=== PATIENT | male | born 1965 | race Two or more races ===

== ENCOUNTER 2025-08-19 14:19 | Emergency (ER) | payer OTHER, SELFPAY ==
[2025-08-19 14:19] VITALS: BP 135/86; PULSE 80; RESP 18; TEMP 37.1; O2SAT 95
--- NOTE | 2025-08-19 15:09 | XR_ITS ---
EXAMINATION: Ankle, right 3 views . Technique: Ankle AP, oblique, lateral 3 views Date and time of exam: August 19, 2025, 1551 hrs. Indications: Patient fell today with injury to the ankle, ankle pain. Findings: Fracture distal fibular shaft, which may represent an old ununited fracture, clinical correlation advised Deformities, old of the distal tibia No ankle dislocation Impression: Fracture distal fibular shaft, which may represent an old ununited fracture, the appearance should be clinically correlated, consider CT scan ankle without contrast follow-up
--- NOTE | 2025-08-19 15:09 | XR_ITS ---
Examination: Knee bilateral, 6 views Technique: Knee AP, lateral, oblique each knee total 6 views Date and time of exam: August 19, 2025 1545 hrs. Indications: Patient fell today with injury to both knees, bilateral knee pain. 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
--- NOTE | 2025-08-19 15:10 | PD.EDANKLE ---
Lower Extremity Injury RME/HPI General Chief Complaint: Ankle/Foot Injury Stated Complaint: RIGHT ANKLE INJURY S/P ETOH Time Seen by Provider: 08/19/25 14:52 Source: patient, EMS, RN notes reviewed and old records reviewed Arrival date/time: 08/19/25 14:19 Mode of arrival: wheelchair Limitations: no limitations RME / HPI RME / HPI Narrative: 60yom presents to ED for ankle pain s/p trip and fall at home today. Patient reports he tripped over the floor after drinking a few beers. Patient c/o right ankle pain and bilateral knee pain/abrasions. Denies head injury. No deformity reported. 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 Home Medications ?Medication ?Instructions ?Recorded ?Confirmed lisinopril 20 mg tablet 40 mg PO QDAY #0 tabs 05/22/17 07/30/23 metformin 1,000 mg tablet 1,000 mg PO BID #0 tabs 05/22/17 07/29/23 (Glucophage) montelukast 10 mg tablet 10 mg PO QDAY #0 tabs 05/22/17 07/29/23 (Singulair) nifedipine 90 mg tablet,extended 1 cap PO DAILY High Blood Pressure 05/22/17 07/30/23 release (Nifedipine ER) ##0 Aspirin Ec * (ECOTRIN *) 81 mg PO QDAY Blood Thinner ##0 11/05/17 07/30/23 ATORVASTATIN CALCIUM 20 mg PO HS High Cholesterol 06/29/18 07/29/23 albuterol sulfate 90 mcg/actuation 1 inh inhalation QID PRN Wheezing 07/29/23 07/30/23 aerosol inhaler empagliflozin 25 mg tablet 25 mg PO QDAY 07/29/23 07/29/23 (Jardiance) fluticasone furoate 50 1 mcg inhalation DAILY 07/29/23 07/29/23 mcg/actuation blister powder for inhalation gabapentin 800 mg tablet 800 mg PO QDAY 07/29/23 07/29/23 levothyroxine 25 mcg tablet 25 mcg PO QDAY 07/29/23 07/29/23 loratadine 10 mg tablet 10 mg PO QDAY 07/29/23 07/29/23 Allergies Allergy/AdvReac Type Severity Reaction Status Date / Time sulfamethoxazole Allergy Mild Rash Verified 07/30/23 07:05 trimethoprim Allergy Mild Rash Verified 07/30/23 07:05 Review of Systems Review of Systems Systems Reviewed: All systems reviewed, normal except as documented ENT Ears, Nose, Mouth, and Throat: Denies dizziness Cardiovascular Cardiovascular: Denies syncope Musculoskeletal Musculoskeletal: Reports arthralgias, Denies deformity, Reports joint swelling, Reports limited range of motion, Denies numbness and Denies tingling Integumentary/Breasts Comments: Reports abrasions Neurologic Neurologic: Denies dizziness, Denies numbness, Denies syncope and Denies tingling Past Medical History Past Medical History NEUROLOGIC: Positive Cerebrovascular Accident CARDIAC: Positive Hypercholesterolemia and Hypertension RESPIRATORY: Positive Asthma ENDOCRINE: Positive Diabetes Mellitus Type 2 Surgical History SURGICAL: Positive Knee Sx Social History SMOKING STATUS: Current some day smoker SUBSTANCE USE: does not use ALCOHOL: Current ED Exam General Limitations: Present no limitations General appearance: Present alert and in no apparent distress Head Head exam: Present atraumatic and normocephalic Eye Eye exam: Present normal appearance, PERRL and EOMI ENT ENT exam: Present normal exam and mucous membranes moist Neck Neck exam: Present normal inspection and full ROM Chest Chest inspection: Present normal inspection and symmetric chest wall rise Respiratory Respiratory exam: Present normal lung sounds bilaterally; Absent respiratory distress Cardiovascular Cardiovascular exam: Present regular rate and normal rhythm Extremities Exam Extremities exam: Present other (Tenderness/swelling to right ankle. Limited ROM 2/2 pain. Able to wiggle all toes. Good pedal pulse, sensation intact) Neurological Exam Neurological exam: Present alert and oriented X3 Psychiatric Psychiatric exam: Present normal affect and normal mood Skin Skin exam: Present other (Superficial abrasions to bilateral anterior knees) Course Course Course Narrative: 1700: visitor services specialistNataly dos santos, evaluated patient for discharge planning. Patient states he lives alone. Denies having wheelchair, walker or walking boot at home. Unable to use crutches s/p CVAx2. No transportation to see PCP. Nataly recommends PT evaluation tomorrow morning for possible SNF placement vs dc home with wheelchair. PT referral placed. visitor services specialist will follow. Patient will remain in ED until further eval. Quality Measures none Orders Category Date Time Status Consult Engine Pilot NOW Care 08/19/25 16:52 Completed Crutches .NOW Care 08/20/25 08:53 Completed Splint / Immobilizer STAT Care 08/19/25 16:25 Completed PT [Referral Physical Therapy] Stat Cons 08/19/25 16:54 Active XR ankle comp RT min 3V Stat Exams 08/19/25 15:09 Completed XR knee BI 3V Stat Exams 08/19/25 15:09 Completed Ibuprofen Tab [Motrin Tab] Med 08/19/25 15:09 Discontinued 800 mg PO X1 ONE Ketorolac Inj [Toradol Inj] Med 08/20/25 09:23 Discontinued 15 mg IM X1 ONE Late Tray Request Routine Oth 08/20/25 07:01 Active Vital Signs Vital signs: Vital Signs Temperature 98.8 F 08/19/25 14:19 Pulse Rate 80 08/19/25 14:19 Respiratory Rate 18 08/19/25 14:19 Blood Pressure 135/86 H 08/19/25 14:19 Pulse Oximetry (%) 95 08/19/25 14:19 Oxygen Delivery Method Room Air 08/19/25 14:19 PROCEDURES: Splint Fabrication: Clinician Made Type: Posterior Leg Reason for Splint: Improve Function, Optimal Positioning, Pain Management, Prevent Deformities and Support Joint/Muscle Circulation Distal to Splint: Yes Movement Distal to Splint: Yes Senation Distal to Splint: Yes Tolerance: Tolerates Well Extremity Injury, Lower MDM Narrative MDM Narrative:: 60yom presents to ED for ankle pain s/p trip and fall at home today. Patient reports he tripped over the floor after drinking a few beers. Patient c/o right ankle pain and bilateral knee pain/abrasions. Denies head injury. No deformity reported. 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 External records reviewed:: [facility] previous records (Admit 07/29/2023 for left knee surgery) Clinical information provided by:: patient and EMS Social determinants that could affect healthcare access:: none Patient has the following chronic illnesses:: Hypertension, diabetes, asthma, CVA How is presenting disease/condition affected by chronic disease/condition?: uneffected by Evaluation data The following diagnostics were reviewed and interpreted by me:: radiology exam(s) Lab and/or radiology exams considered but not ordered:: Blood alcohol level: Result not affect treatment plan Interpretation Summary: Knee x-rays: distal fibula fracture per my read Medications / Prescriptions Medications or Prescriptions considered but not ordered:: None Medication administrations:: Medication Administration History Discontinued Medications Ibuprofen (Ibuprofen Tab 400 Mg Tablet) 800 mg PO X1 ONE Stop: 08/19/25 15:10 Last Admin: 08/19/25 15:31 Dose: 800 mg Documented By: FLOWER Ketorolac Tromethamine (Ketorolac Inj 30 Mg/Ml Vial) 15 mg IM X1 ONE Stop: 08/20/25 09:24 Last Admin: 08/20/25 09:33 Dose: 15 mg Documented By: EF above medication adminstered in ED Consultations Consultation(s) initiated? (list below): No Diagnosis Extremity Injury, Lower Differential Diagnosis: other (Fracture, dislocation, sprain, strain, contusion, MSK pain) Most likely diagnosis given after review of the tests above:: ankle fracture Admission Indicated Admission indicated?: not indicated Admission Request Was there a request for admission?: No Disposition Plan Disposition Plan: Discharge Discharge Attestation Discharge Attestation: The patient and all family members were given an opportunity to ask questions and understood the discharge instructions. Discharge instructions specifically effects, indications for sooner follow up or return to the emergency department, and the expected course of current diagnosis. Patient condition: Stable Discharge Plan Plan Patient Disposition: Home w/HOME HEALTH Patient condition on transfer: Stable Prescriptions/Referrals Prescriptions/Med Rec: No Action nifedipine [Nifedipine ER] 90 MG tablet extended release 1 cap PO DAILY Qty: 0 lisinopril 20 MG tablet 40 mg PO QDAY Qty: 0 metformin [Glucophage] 1,000 MG tablet 1,000 mg PO BID Qty: 0 montelukast [Singulair] 10 MG tablet 10 mg PO QDAY Qty: 0 Aspirin Ec * (ECOTRIN *) 81 MG TABLET.DR 81 mg PO QDAY Qty: 0 ATORVASTATIN CALCIUM 20 MG tablet 20 mg PO HS levothyroxine 25 mcg Tablet 25 mcg PO QDAY gabapentin 800 mg Tablet 800 mg PO QDAY albuterol sulfate 90 mcg/actuation Hfa Aerosol Inhaler 1 inh INHALATION QID PRN (Reason: Wheezing) loratadine 10 mg Tablet 10 mg PO QDAY Jardiance 25 mg Tablet 25 mg PO QDAY fluticasone furoate 50 mcg/actuation Blister With Device 1 mcg INHALATION DAILY Referrals: Ely Smiley MD [Primary Care Provider] - In 1 week Problem List Clinical Impression: Ankle fracture, right Patient/Caregiver Discharge Instructions Additional Instructions: I recommend that you obtain a walker to help with mobility at home. If you have any difficulties with mobility or you change your mind about placement into a fpc facility please return to the emergency department immediately. The x-ray of your right lower extremity showed a distal fibular shaft fracture. Your left leg showed as well as a osteolytic lesion in the left tibia that appears unchanged from 2023. It is important that you have this evaluated further with advanced imaging with your primary care doctor. I recommend that you see a condenser tester for management of your ankle fracture within the next week and follow-up with your primary care doctor within the next 1 to 2 days. Print Language: Belarusian Stand Alone Forms: Shaye Award Info., Patient Portal Info Letter PA/TEXTILE COLORIST DYER Supervising Physician PA/TEXTILE COLORIST DYER Supervising Physician: Cristina
[2025-08-19] MEDS: IBUPROFEN TAB 400 MG TABLET 800 MG PO (15:31)
--- NOTE | 2025-08-19 16:45 | PC.NURSE ---
Splint applied to patient. Patient unable to use crutches safely,, patient noted to have slight right sided weakness, patient states It's from my stroke a long time ago . Patient denies having any DME at home or help from family or friend. Provider and Extractor Tender Raw Stock made aware.
--- NOTE | 2025-08-19 17:07 | PC.CC ---
Product Specialist, Ariela made aware by Damaris ZEPEDA that patient was going to discharge home and needed transportation. CC met with patient [id number] to discuss transportation services. Patient was pleasant. Patient reported that he suffered a stroke and is weak from the right side of his body. Patient reported that he has no DME or assistance at his friend's house ([address] [place] [address]). SW recommended a PT evaluation for short-term rehabilitation, if it denied by insurance, then Care Coordinators can obtain a wheelchair with a leg extension from [facility].
[2025-08-19 17:47] VITALS: BMI 34.8
--- NOTE | 2025-08-19 18:23 | EDNOTE_ITS ---
Emergency Room Addendum <Leda Lozano - Last Filed: 08/19/25 18:25> Addendum Narrative: I took over the care from Kvng Benavides and Dr. Evans at 6 PM on 08/19/2025, see his notes for complete H&P and ED course. Patient needs evaluation by our PT/OT and social media content specialist for possible snf placement. At 6 AM on 08/19/2025, the care of the patient was transferred to Dr. Evans. During my watch, the patient remained stable. Padilla Meyer MD <Padilla Meyer MD - Last Filed: 08/20/25 02:40> Addendum Narrative: I took over the care from YAMEL Arambula (attending Dr. Evans) at 6 PM on 08/19/2025, see her notes for complete H&P and ED course. Patient sustained right ankle fracture. fitness services managerNataly, evaluated patient for discharge planning yesterday. Patient lives alone. With no wheelchair. Unable to use crutches due to past CVAx2. No transportation to see PCP. Nataly recommended PT evaluation for possible SNF placement or possibly wheelchair for home. At 6 AM on 08/20/2025, the care of the patient was transferred to Dr. Evans. During my watch, the patient remained stable. Padilla Meyer MD
[2025-08-19 18:42] VITALS: BP 141/83; PULSE 81; RESP 18; TEMP 37.2; O2SAT 96
[2025-08-19 19:21] VITALS: BP 131/86; PULSE 85; RESP 18; TEMP 36.8; O2SAT 95
--- NOTE | 2025-08-19 20:51 | PC.NURSE ---
pt eval in the am
--- NOTE | 2025-08-19 20:52 | PC.NURSE ---
this rn gave pt dinner
[2025-08-20 05:42] VITALS: BP 158/102; PULSE 97; RESP 18; TEMP 36.9; O2SAT 94
--- NOTE | 2025-08-20 08:53 | PD.EDADDENDU ---
Emergency Room Addendum Addendum Narrative: Patient is a 60-year-old male that seen emergency department with concerns for right ankle pain and difficulties with mobility after sustaining a distal fibular shaft fracture. Patient was evaluated by provider yesterday, patient was placed in a splint. He is neurovascularly intact. Given his prior strokes, overnight provider concern that patient will have difficulties with ambulation. Initially had discussed crutches however at the time concerns with patient ambulation. Prior to this patient states that he would walk around his house without any difficulty. Does not use a walker. Patient was evaluated by social service agency director discussed with patient, patient does not want to be placed in a retirement. Patient states that he feels comfortable ambulating with crutches, and has access to a walker with a neighbor next-door. Patient states that he does not need to walk very much. And is able to transfer from the bed to the chair without difficulties and feels that he will be able to take care of his activities of daily living at home. Patient provided with crutches. Given patient is able to ambulate will discharge home with close return precautions follow-up with his primary care doctor.
--- NOTE | 2025-08-20 09:09 | PC.SS ---
Moo Vargas is a 60 year old male in ED for ankle injury. This SW engineering intern met with him at bedside, demographics were verified with patient. Patient is alert and oriented able to confirm home address, phone number and emergency contact. His is his emergency contact Nelli Vargas her contact information is [phone]. Patient was able to confirm to this SW engineering intern he fell and injured his ankle, he was able to provide history of 2 strokes. Patient asked if he feels he would benefit from SNF placement for rehab services, he declines needing to be admitted to SNF for rehab services. Patient states he would accept home health services at home. Patient said he does not use any medical equipment at home and denies needing any but could use crutches. Patient states his PCP is Dr. Linda Smiley/ private practice in [place], he states he is due for a follow up visit with his PCP. Patient will return home via [employer] transport as his is currently at work. Attending physician Dr. Danika Evans went to patient bedside with this SW engineering intern to confirm he did not need any DME and was only asking for crutches. PCP: Nelli Smiley DC Plan: Return home with Next of Kin: Nelli Vargas [phone]
[2025-08-20 09:16] VITALS: BP 161/95; PULSE 110; RESP 15; O2SAT 97
[2025-08-20] MEDS: KETOROLAC INJ 30 MG/ML VIAL 15 MG IM (09:33)
== END 2025-08-20 09:43 | disposition home or self-care (01) ==
PROVIDERS: Emergency Provider Emergency Medicine; PCP Nurse Practitioner
DX: S82.831A Other fracture of upper and lower end of right fibula, initial encounter for closed fracture (principal); S80.212A Abrasion, left knee, initial encounter; S80.211A Abrasion, right knee, initial encounter; W01.0XXA Fall on same level from slipping, tripping and stumbling without subsequent striking against object, initial encounter; Z60.2 Problems related to living alone
CPT/HCPCS: 73562; 73610; 96372; 99284; J1885; A9270

== ENCOUNTER → 2025-10-12 | Outpatient (CLI) | payer OTHER, SELFPAY ==
[2025-10-12 10:10] LABS: Alanine Aminotransferase 32 U/L (10-49); Albumin, Serum 4.8 gm/dL (3.5-5.0); Alkaline Phosphatase 86 U/L (46-116); Aspartate Amino Transferase 31 U/L (0-34); Bilirubin,Direct 0.2 mg/dL (0.0-0.3); Bilirubin,Total 0.5 mg/dL (0.3-1.2); Total Protein 6.7 gm/dL (5.7-8.2)
== END | disposition home or self-care (01) ==
PROVIDERS: PCP Nurse Practitioner Family; Referring Provider Student in an Organized Health Care Education/Training Program; Visit Provider Student in an Organized Health Care Education/Training Program
DX: B35.1 Tinea unguium (principal)
CPT/HCPCS: 36415; 80076

== ENCOUNTER → 2025-10-22 | Outpatient (CLI) | payer OTHER, SELFPAY ==
--- NOTE | 2025-10-22 15:56 | XR_ITS ---
EXAMINATION: Ankle, right 3 views. Technique: Ankle AP, oblique, lateral 3 views Date and time of exam: October 22, 2025, 1644 hours INDICATIONS: Fractured fibular shaft 08/19/2025, postop reduction internal fixation fracture FINDINGS: Significant healing fracture distal fibular shaft with satisfactory alignment Orthopedic hardware satisfactory position IMPRESSION: Significant healing fracture distal fibular shaft with anatomic alignment
== END | disposition home or self-care (01) ==
PROVIDERS: PCP Nurse Practitioner Family; Referring Provider Orthopaedic Surgery; Visit Provider Orthopaedic Surgery
DX: S82.61XA Displaced fracture of lateral malleolus of right fibula, initial encounter for closed fracture (principal); X58.XXXA Exposure to other specified factors, initial encounter
CPT/HCPCS: 73610